=== PATIENT | male | born 2000 | race Two or more races ===

== ENCOUNTER 2024-04-22 12:02 | Emergency (ER) | payer OTHER ==
[2024-04-22 12:33] VITALS: BP 137/78; O2SAT 99
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
--- NOTE | 2024-04-22 14:18 | XRAY Report ---
PROCEDURE: Humerus RT INDICATIONS: Trauma TECHNIQUE: 2 views of the humerus were acquired. COMPARISON: None. FINDINGS: Bones: No fractures or dislocations. No suspicious bony lesions. Soft tissues: No suspicious soft tissue calcifications or masses. IMPRESSION: No visualized acute fracture or dislocation. However, occult injury cannot be excluded. Recommend velasquez rt interval imaging follow-up in 7-10 days as clinically indicated for additional evaluation. Reviewed by: Tiffany Mckeon MD on 04/22/2024 2:16 PM PDT Approved by: Tiffany Mckeon MD on 04/22/2024 2:16 PM PDT Station ID: [id number]
== END 2024-04-22 14:22 | disposition home or self-care (01) ==
LOC: ED 12:02
DX: S40.011A Contusion of right shoulder, initial encounter (principal); V86.95XA Unspecified occupant of 3- or 4- wheeled all-terrain vehicle (ATV) injured in nontraffic accident, initial encounter
CPT/HCPCS: 99283; 99284